=== PATIENT | female | born 1995 | race Caucasian/White ===

== ENCOUNTER 2017-08-30 15:38 | Emergency (ER) | payer OTHER ==
[~2017-08-30] VITALS: Ht 170.2 cm; Wt 109.1 kg
[2017-08-30 15:42] VITALS: BP 141/84; TEMP 99
[2017-08-30 17:46] VITALS: PULSE 95
== END 2017-08-30 17:47 | disposition home or self-care (01) ==
LOC: COL.ER 15:38
DX: M94.0 Chondrocostal junction syndrome [Tietze] (principal); Z88.0 Allergy status to penicillin; Z88.1 Allergy status to other antibiotic agents